=== PATIENT | female | born 1990 | race African-American/Black ===

== ENCOUNTER 2016-11-16 13:23 | Emergency (ER) | payer OTHER ==
[2016-11-16 13:54] VITALS: BP 118/70; PULSE 62; TEMP 98.2; BMI 17.8
--- NOTE | 2016-11-16 14:15 | PDOC ---
History of Present Illness - General Chief Complaint: Pain Stated Complaint: HEAD AND NECK INJURY Time Seen by Provider: 11/16/16 13:58 History Source: Patient Exam Limitations: No Limitations - History of Present Illness Initial Comments: 11/16/16 14:09 [employer] employee had snow fall on self from roof today while at work Occurred: reports: just prior to arrival Severity: reports: mild Pain Location: reports: back, head, neck Method of Injury: Yes: direct blow (snow from roof) Loss of Consciousness: no loss of consciousness Associated Symptoms (Fall): denies symptoms (excep), headache Past History - Past Medical History Allergies/Adverse Reactions: Allergies Allergy/AdvReac Type Severity Reaction Status Date / Time No Known Allergies Allergy Verified 05/17/16 13:32 Home Medications: Ambulatory Orders Famotidine [Pepcid] 20 mg PO DAILY #21 tablet 05/17/16 Ondansetron [Zofran Odt -] 4 mg SL TID #21 od.tablet 05/17/16 Anemia: No Asthma: No Cancer: No Cardiac Disorders: No CVA: No Disorders: (vaginal discharge) Kidney Stones: No Other medical history: denies - Surgical History Abdominal Surgery: No - Immunization History Td Vaccination: Yes TDAP Vaccination: Yes Immunization Up to Date: Yes - Psycho/Social/Smoking Cessation Hx Anxiety: No Suicidal Ideation: No Smoking Status: No Smoking History: Never smoked Years of Tobacco Use: 0 Have you smoked in the past 12 months: No Number of Cigarettes Smoked Daily: 0 Cigars Per Day: 0 Hx Alcohol Use: No Drug/Substance Use Hx: No Substance Use Type: Marijuana Review of Systems - Review of Systems Constitutional: No: Chills, Fever, Malaise HEENTM: No: Blurred Vision, Recent change in vision, Double Vision, Difficulty Swallowing Respiratory: No: Symptoms reported, Cough Cardiac (ROS): No: Symptoms Reported Musculoskeletal: Yes: Neck Pain (right lateral) Integumentary: No: Symptoms Reported, Bruising, Erythema Neurological: Yes: Symptoms reported, Headache (slight). No: Numbness, Paresthesia, Tingling, Tremors, Weakness, Ataxia, Dizziness *Physical Exam - Vital Signs Last Vital Signs Temp Pulse Resp BP Pulse Ox 98.2 F 62 18 118/70 100 11/16/16 13:37 11/16/16 13:37 11/16/16 13:37 11/16/16 13:37 11/16/16 13:37 - Physical Exam General Appearance: Yes: Appropriately Dressed, Apparent Distress, Other (mild tenderness to left occiput area, no STS) Neck: positive: Tender (tender to right lateral neck), Supple, Tender lateral. negative: Rigid, Rigidity, Tender midline Respiratory/Chest: positive: Chest Tender (tender to right upper back, medial to upper scapula), Lungs Clear Medical Decision Making - Medical Decision Making 11/16/16 14:15 no imaging needed now; pt will take motrin at home and instructed to return to ED for any new symptoms *DC/Admit/Observation/Transfer Diagnosis at time of Disposition: Strain of neck muscle Qualifiers: Encounter type: initial encounter Qualified Code(s): S16.1XXA - Strain of muscle, fascia and tendon at neck level, initial encounter Contusion of head Qualifiers: Encounter type: initial encounter Contusion of head detail: scalp Qualified Code(s): S00.03XA - Contusion of scalp, initial encounter - Discharge Dispostion Disposition: HOME Condition at time of disposition: Stable Admit: No - Patient Instructions Additional Instructions: return to ED for any new symptoms; motrin 400mg 3 times daily;
== END 2016-11-16 14:24 | disposition home or self-care (01) ==
LOC: JERFT 13:23
DX: S16.1XXA Strain of muscle, fascia and tendon at neck level, initial encounter (principal); S00.03XA Contusion of scalp, initial encounter; W20.8XXA Other cause of strike by thrown, projected or falling object, initial encounter; Y93.29 Activity, other involving ice and snow; Y92.59 Other trade areas as the place of occurrence of the external cause; Y99.0 Civilian activity done for income or pay
CPT/HCPCS: 99281-25

== ENCOUNTER 2017-11-24 03:32 | Emergency (ER) | payer OTHER ==
[2017-11-24] MEDS ORDERED: ONDANSETRON *ODT* 4 MG TABLET SL ONE (03:49)
--- NOTE | 2017-11-24 03:49 | PDOC ---
History of Present Illness - General Chief Complaint: Nausea/Vomiting Stated Complaint: VOMITING Time Seen by Provider: 11/24/17 03:49 History Source: Patient - History of Present Illness Initial Comments: 11/24/17 05:06 26 year old female with nausea, vomiting and RLQ pain x 6 days. denies fever/ chills, vaginal pain, discharge. LMP: 11/23/2017 11/24/17 06:50 Past History - Past Medical History Allergies/Adverse Reactions: Allergies Allergy/AdvReac Type Severity Reaction Status Date / Time No Known Allergies Allergy Verified 11/24/17 03:48 Home Medications: Ambulatory Orders NK [No Known Home Medication] 11/24/17 Anemia: No Asthma: No Cancer: No Cardiac Disorders: No CVA: No COPD: No Disorders: (vaginal discharge) Kidney Stones: No - Surgical History Abdominal Surgery: No - Immunization History Td Vaccination: Yes TDAP Vaccination: Yes Immunization Up to Date: Yes - Suicide/Smoking/Psychosocial Hx Smoking Status: No Smoking History: Never smoked Years of Tobacco Use: 0 Have you smoked in the past 12 months: No Number of Cigarettes Smoked Daily: 0 Cigars Per Day: 0 Hx Alcohol Use: No Drug/Substance Use Hx: No Substance Use Type: Marijuana Review of Systems - Review of Systems Able to Perform ROS?: Yes Is the patient limited Yi proficient: No Constitutional: No: Symptoms Reported, See HPI, Chills, Diaphoresis, Fever, Loss of Appetite, Malaise, Night Sweats, Weakness, Weight Stable, Unintentional Wgt. Loss, Unexplained wgt Loss, Other ABD/GI: Yes: Nausea, Vomiting, Abdominal cramping (RLQ) : No: Symptoms Reported, See HPI, Burning, Dysuria, Discharge, Frequency, Flank Pain, Hematuria, Incontinence, Pain, Urgency, Testicular Mass, Testicular Swelling, Lesions, Testicular Pain, Other *Physical Exam - Vital Signs 11/24/17 05:07 Last Vital Signs Temp Pulse Resp BP Pulse Ox 99.3 F 83 20 104/71 96 11/24/17 03:48 11/24/17 03:48 11/24/17 03:48 11/24/17 03:48 11/24/17 03:48 ED Treatment Course - LABORATORY CBC & Chemistry Diagram: 11/24/17 04:26 11/24/17 04:26 - RADIOLOGY Radiograph Interpretation: 11/24/17 06:50 CTAP: there is small amount of pelvic fluid. there is prominent vessels in the right adnexa suggesting right ovarian varices. normal appendix *DC/Admit/Observation/Transfer Diagnosis at time of Disposition: Right-sided abdominal pain of unknown cause - Referrals - Patient Instructions - Post Discharge Activity
[2017-11-24 03:50] VITALS: BMI 18.5
[2017-11-24] MEDS ORDERED: ONDANSETRON 4 MG/2 ML VIAL IVPUSH ONE (04:06)
[2017-11-24] MEDS ORDERED: SODIUM CHLORIDE 1,000 ML IV STA (04:06)
[2017-11-24] MEDS ORDERED: ONDANSETRON 4 MG/2 ML VIAL ONE (04:06)
[2017-11-24 04:34] LABS: BASO % 0.3 % (0-2.0); HEMATOCRIT 37.5 % (32.4-45.2); HEMOGLOBIN 12.9 GM/dL (10.7-15.3); LYMPH % 7.3 % (8-40); MCH 30.7 pg (25.7-33.7); MCHC 34.3 g/dl (32.0-36.0); MEAN CELL VOLUME 89.6 fl (80-96); MONO % 4.9 % (3.8-10.2); NEUT % 87.5 % (42.8-82.8); PLATELET COUNT 212 K/MM3 (134-434); RBC 4.19 M/mm3 (3.60-5.2); WHITE BLOOD COUNT 7.1 K/mm3 (4.0-10.0)
[2017-11-24 04:58] LABS: ALBUMIN 4.4 g/dl (3.4-5.0); ALK PHOS 55 U/L (45-117); ANION GAP 10 (8-16); BILIRUBIN,TOTAL 0.6 mg/dL (0.2-1.0); BLOOD UREA NITROGEN 12 mg/dL (7-18); CALCIUM 9.2 mg/dL (8.5-10.1); CHLORIDE 104 mmol/L (98-107); CO2 25 mmol/L (21-32); CREATININE 0.7 mg/dL (0.55-1.02); GLUCOSE,RANDOM 110 mg/dL (74-106); POTASSIUM 3.6 mmol/L (3.5-5.1); SGOT/AST 15 U/L (15-37); SGPT/ALT 22 U/L (12-78); SODIUM 139 mmol/L (136-145); TOT PROT 7.8 g/dl (6.4-8.2)
--- NOTE | 2017-11-24 07:30 | PDOC ---
*Physical Exam - Vital Signs Last Vital Signs Temp Pulse Resp BP Pulse Ox 99.3 F 83 20 104/71 96 11/24/17 03:48 11/24/17 03:48 11/24/17 03:48 11/24/17 03:48 11/24/17 03:48 - Physical Exam General Appearance: Yes: Appropriately Dressed. No: Apparent Distress HEENT: positive: Normal Voice Neck: positive: Supple Respiratory/Chest: negative: Respiratory Distress Gastrointestinal/Abdominal: positive: Soft. negative: Tender Musculoskeletal: negative: CVA Tenderness Integumentary: positive: Dry, Warm Neurologic: positive: Fully Oriented, Alert, Normal Mood/Affect ED Treatment Course - LABORATORY CBC & Chemistry Diagram: 11/24/17 04:26 11/24/17 04:26 - ADDITIONAL ORDERS Additional order review: Laboratory Results 11/24/17 11/24/17 11/24/17 04:27 04:26 04:26 Sodium 139 Potassium 3.6 Chloride 104 Carbon Dioxide 25 Anion Gap 10 BUN 12 Creatinine 0.7 Creat Clearance w eGFR > 60 Random Glucose 110 H Calcium 9.2 Total Bilirubin 0.6 D AST 15 ALT 22 Alkaline Phosphatase 55 Total Protein 7.8 Albumin 4.4 Serum , Qual Negative Blood Type A POSITIVE Antibody Screen Negative 11/24/17 04:26 RBC 4.19 MCV 89.6 MCHC 34.3 RDW 13.0 MPV 9.0 Neutrophils % 87.5 H Lymphocytes % 7.3 L D Monocytes % 4.9 Eosinophils % 0.0 D Basophils % 0.3 - Medications Given in the ED: ED Medications Discontinued Medications Generic Name Dose Route Start Last Admin Trade Name Freq PRN Reason Stop Dose Admin Sodium Chloride 1,000 mls @ 1,000 mls/hr 11/24/17 04:06 11/24/17 04:19 Normal Saline - IV 11/24/17 05:05 1,000 mls/hr ASDIR STA Administration Ondansetron HCl 4 mg 11/24/17 03:49 11/24/17 04:32 Zofran Odt - SL 11/24/17 03:50 Not Given ONCE ONE Ondansetron HCl 4 mg 11/24/17 04:06 11/24/17 04:19 Zofran Injection IVPUSH 11/24/17 04:07 4 mg ONCE ONE Administration Medical Decision Making - Medical Decision Making 11/24/17 07:28 Patient signed out to me at 7 AM by garrett Howard. Patient is a 26-year-old female, h/o ovarian cyst, currently on her menses, here with pelvic pain. Patient reports right-sided lower abdominal pain that is chronic in nature and mostly associated with her menses, but states recently she has also had some dyspareunia and n/v intermittently. No vaginal discharge, dysuria, fever or chills. For unclear reasons, has not been evaluated by her CT TECHNOLOGIST. No new sexual partners and no history of STDs. As per prior provider, pt was tender to RLQ on initial exam w/ normal pelvic. Labs unremarkable. Patient had CT done which only showed possible right ovarian varices which could represent pelvic congestion syndrome. Ultrasound pending. Pain currently controlled 11/24/17 07:31 11/24/17 09:00 Ultrasound read as minimal free fluid in the left adnexa that could possibly be due to recent rupture of cyst or follicle. Right and left ovary with small cysts/follicles with normal arterial and venous flow. Patient pain-free at this time. Will dc with CT TECHNOLOGIST follow-up this week *DC/Admit/Observation/Transfer Diagnosis at time of Disposition: Ovarian cyst Qualifiers: Laterality: bilateral Qualified Code(s): N83.201 - Unspecified ovarian cyst, right side; N83.202 - Unspecified ovarian cyst, left side; N83.202 - Unspecified ovarian cyst, left side - Discharge Dispostion Disposition: HOME Condition at time of disposition: Improved - Referrals - Patient Instructions Printed Discharge Instructions: Ovarian Cyst Additional Instructions: Your CAT scan show that you may possibly have right ovarian varices which can cause chronic pelvic pain. Your ultrasound showed bilateral ovarian cysts with possible recent rupture of one of your cysts. There is however good blood flow on both sides Take 600-800 mg of Motrin as needed for pain and please follow-up with your CT TECHNOLOGIST this week. If symptoms worsen, return to ER - Post Discharge Activity
[2017-11-24 07:39] LABS: URINE APPEARANCE CLOUDY; URINE BILIRUBIN NEGATIVE (NEGATIVE); URINE BLOOD 3+ (NEGATIVE); URINE COLOR RED; URINE GLUCOSE (UA) NEGATIVE (NEGATIVE); URINE KETONE 2+ (NEGATIVE); URINE LEUK ESTERASE TRACE (NEGATIVE); URINE NITRITE NEGATIVE (NEGATIVE); URINE UROBILINOGEN 4.0 E.U/dl mg/dL (0.2-1.0)
[2017-11-24 07:42] LABS: URINE PROTEIN 2+ (NEGATIVE)
[2017-11-24 07:48] LABS: URINE MUCUS RARE
[2017-11-24 09:17] VITALS: BP 108/77; PULSE 88; TEMP 98
== END 2017-11-24 09:17 | disposition home or self-care (01) ==
LOC: JER 03:32
PROC: 3E033GC Introduction of Other Therapeutic Substance into Peripheral Vein, Percutaneous Approach (ICD-10-PCS; principal; 2017-11-24)
DX: N83.201 Unspecified ovarian cyst, right side (principal); N83.202 Unspecified ovarian cyst, left side
CPT/HCPCS: 36415; 74177-TC; 76830-TC; 80053; 81003; 81015; 84703; 85025; 86850; 86900; 86901; 99283-25

== ENCOUNTER 2019-10-19 08:27 | Emergency (ER) | payer SELFPAY ==
[2019-10-19 08:39] VITALS: BP 115/64; PULSE 112; TEMP 101.1; BMI 20.5
[2019-10-19] MEDS ORDERED: ACETAMINOPHEN 325 MG TABLET (FP) PO ONE (09:08)
[2019-10-19] MEDS ORDERED: ACETAMINOPHEN 325 MG TABLET (FP) ONE (09:11)
--- NOTE | 2019-10-19 10:01 | PDOC ---
History of Present Illness - General Chief Complaint: Cold Symptoms Stated Complaint: FLU LIKE SYMPTOMS Time Seen by Provider: 10/19/19 08:59 History Source: Patient - History of Present Illness Timing/Duration: reports: yesterday Past History - Past Medical History Allergies/Adverse Reactions: Allergies Allergy/AdvReac Type Severity Reaction Status Date / Time No Known Allergies Allergy Verified 11/24/17 03:48 Home Medications: Ambulatory Orders NK [No Known Home Medication] 11/24/17 Anemia: No Asthma: No Cancer: No Cardiac Disorders: No CVA: No COPD: No Disorders: (vaginal discharge) Kidney Stones: No - Surgical History Abdominal Surgery: No - Immunization History Td Vaccination: Yes TDAP Vaccination: Yes Immunization Up to Date: Yes - Psycho Social/Smoking Cessation Hx Smoking Status: No Smoking History: Never smoked Years of Tobacco Use: 0 Have you smoked in the past 12 months: No Number of Cigarettes Smoked Daily: 0 Cigars Per Day: 0 Hx Alcohol Use: No Drug/Substance Use Hx: No Substance Use Type: Marijuana Review of Systems - Review of Systems Constitutional: Yes: Fever, Malaise HEENTM: No: Ear Pain, Throat Pain Respiratory: Yes: Cough. No: Shortness of Breath Cardiac (ROS): No: Chest Pain ABD/GI: No: Diarrhea, Vomiting *Physical Exam - Vital Signs Last Vital Signs Temp Pulse Resp BP Pulse Ox 101.1 F H 112 H 17 115/64 99 10/19/19 08:36 10/19/19 08:36 10/19/19 08:36 10/19/19 08:36 10/19/19 08:36 - Physical Exam 10/19/19 10:04 july mildly lethargic General Appearance: Yes: Appropriately Dressed HEENT: positive: Normal ENT Inspection, Normal Voice, TMs Normal, Pharynx Normal. negative: Scleral Icterus (R), Scleral Icterus (L) Neck: positive: Supple Respiratory/Chest: positive: Lungs Clear, Normal Breath Sounds. negative: Respiratory Distress Cardiovascular: positive: Regular Rate, S1, S2 Integumentary: positive: Dry, Warm Neurologic: positive: Fully Oriented, Alert, Normal Mood/Affect ED Treatment Course - Medications Given in the ED: ED Medications Discontinued Medications Generic Name Dose Route Start Last Admin Trade Name Freq PRN Reason Stop Dose Admin Acetaminophen 650 mg 10/19/19 09:08 10/19/19 09:13 Tylenol - PO 10/19/19 09:09 650 mg ONCE ONE Administration Medical Decision Making - Medical Decision Making 10/19/19 09:59 28-year-old female, no significant history, here with body aches, cough, fever and chills for 2 days. No shortness of breath nausea vomiting diarrhea. see exam Viral syndrome Exam remarkable for low grade fever Flu neg Dc w/ supportive tx Discharge - Discharge Information Problems reviewed: Yes Clinical Impression/Diagnosis: Viral illness Condition: Good Disposition: HOME - Follow up/Referral - Patient Discharge Instructions Additional Instructions: Your symptoms are most likely due to a viral source Rest drink plenty fluids and take Motrin or Tylenol as needed for pain and/or fever - Post Discharge Activity Work/Back to School Note: Back to Work
== END 2019-10-19 10:08 | disposition home or self-care (01) ==
LOC: JERFT 08:27
DX: B34.9 Viral infection, unspecified (principal)
CPT/HCPCS: 87804; 99281-25

== ENCOUNTER 2024-04-22 10:20 | Emergency (ER) | payer OTHER ==
[2024-04-22 10:29] VITALS: BP 106/71; PULSE 80; RESP 18; TEMP 98.1; BMI 20.5
[2024-04-22 12:25] LABS: PH,URINE 7.5 (5.0-8.0); URINE APPEARANCE CLEAR; URINE BILIRUBIN NEGATIVE (NEGATIVE); URINE COLOR YELLOW; URINE GLUCOSE (UA) NEGATIVE (NEGATIVE); URINE KETONE NEGATIVE (NEGATIVE); URINE LEUK ESTERASE NEGATIVE (NEGATIVE); URINE NITRITE NEGATIVE (NEGATIVE); URINE PROTEIN NEGATIVE (NEGATIVE)
[2024-04-22 12:28] LABS: HCG,QUALITATIVE URINE Negative
[2024-04-22] MEDS ORDERED: ONDANSETRON 4 MG/2 ML VIAL ONE (13:44)
[2024-04-22 13:45] LABS: BASO % 0.5 % (0-2.0); EOS % 1.4 % (0-4.5); HEMATOCRIT 36.6 % (32.4-45.2); HEMOGLOBIN 12.5 GM/dL (10.7-15.3); LYMPH % 21.6 % (8-40); MCH 30.6 pg (25.7-33.7); MCHC 34.1 g/dl (32.0-36.0); MEAN CELL VOLUME 89.6 fl (80-96); MEAN PLT VOLUME 7.7 fl (7.5-11.1); MONO % 6.2 % (3.8-10.2); NEUT % 70.3 % (42.8-82.8); PLATELET COUNT 217 10^3/uL (134-434); RBC 4.09 M/mm3 (3.60-5.2); RDW 13.6 % (11.6-15.6); WHITE BLOOD COUNT 6.8 K/mm3 (4.0-10.0)
[2024-04-22 13:52] LABS: CALCIUM 9.3 mg/dL (8.5-10.1); POTASSIUM 4.7 mmol/L (3.5-5.1)
[2024-04-22] MEDS: SODIUM CHLORIDE 1,000 ML IV STA (13:52)
[2024-04-22] MEDS: ONDANSETRON 4 MG/2 ML VIAL IVPUSH ONE (13:52)
[2024-04-22 13:53] LABS: ALBUMIN 4.2 g/dl (3.4-5.0)
[2024-04-22 13:56] LABS: CREATININE 0.6 mg/dL (0.55-1.3)
[2024-04-22 13:58] LABS: BILIRUBIN,TOTAL 0.4 mg/dL (0.2-1); TOT PROT 7.6 g/dl (6.4-8.2)
== END 2024-04-22 17:22 | disposition home or self-care (01) ==
LOC: JER 10:20
DX: J02.9 Acute pharyngitis, unspecified (principal); R22.1 Localized swelling, mass and lump, neck; R53.81 Other malaise
CPT/HCPCS: 36415; 70491-TC; 80053; 81003; 84703; 85025; 86308; 87651; 99285-25; Q9967

== ENCOUNTER 2025-01-15 10:42 | Emergency (ER) | payer OTHER ==
[2025-01-15 10:57] VITALS: TEMP 98.2; BMI 27.4
[2025-01-15] MEDS ORDERED: ONDANSETRON 4 MG/2 ML VIAL ONE (11:38)
[2025-01-15] MEDS ORDERED: ACETAMINOPHEN INJECTION 100 ML ONE (11:38)
[2025-01-15] MEDS ORDERED: FAMOTIDINE 20 MG/50 ML IVPB 20 MG/50 ML MG IVPB ONE (11:39)
[2025-01-15] MEDS: ONDANSETRON 4 MG/2 ML VIAL IVPUSH ONE (12:16)
[2025-01-15] MEDS: SODIUM CHLORIDE 0.9% 500 ML INFUS.BAG IV ONE ×2 (12:16→14:34)
[2025-01-15] MEDS: ACETAMINOPHEN 1000 MG/100 ML BAG IVPB ONE (12:16)
[2025-01-15] MEDS: FAMOTIDINE 20 MG/50 ML IVPB 20 MG/50 ML MG IVPB ONE (12:16)
[2025-01-15 12:33] LABS: HEMOGLOBIN 12.9 g/dL (11.2-15.7); MCHC 33.9 g/dl (32.2-35.5); MEAN PLT VOLUME 10.2 fl (9.4-12.3); PLATELET COUNT 282 x10^3/uL (182-369); RDW 12.6 % (12.1-16.8)
[2025-01-15 12:53] LABS: POTASSIUM 3.9 mmol/L (3.5-5.1)
[2025-01-15 12:56] LABS: ALBUMIN 4.5 g/dl (3.4-5.0); BLOOD UREA NITROGEN 10.3 mg/dL (7-18); CALCIUM 9.6 mg/dL (8.5-10.1)
[2025-01-15 12:59] LABS: CREATININE 0.8 mg/dL (0.55-1.3)
[2025-01-15 13:01] LABS: BILIRUBIN,TOTAL 0.5 mg/dL (0.2-1); TOT PROT 8.1 g/dl (6.4-8.2)
[2025-01-15 13:04] LABS: EPI CELLS 25 /uL (0-25.1); HYALINE CASTS 1 /uL (0-3.1); URINE APPEARANCE CLOUDY; URINE BACTERIA 407 /uL (0-1359); URINE BILIRUBIN NEGATIVE (NEGATIVE); URINE COLOR YELLOW; URINE GLUCOSE (UA) NEGATIVE (NEGATIVE); URINE KETONE 1+ (NEGATIVE); URINE LEUK ESTERASE NEGATIVE (NEGATIVE); URINE NITRITE NEGATIVE (NEGATIVE); URINE PROTEIN TRACE (NEGATIVE); URINE UROBILINOGEN 0.2 mg/dL (0.2-1.0); URINE WBC 42 /uL (0-25.8)
[2025-01-15 13:21] LABS: URINE RBC 197 /uL (0-23.9); YEAST NONE SEEN (NEGATIVE)
[2025-01-15 13:49] LABS: HIV INTERPRETATION NEGATIVE (NEGATIVE)
[2025-01-15 13:50] LABS: HCV DIAGNOSTIC IN-HOUSE W/RFLX NON-REACTIVE (NONREACTIVE)
[2025-01-15 15:32] VITALS: BP 102/63; PULSE 61; RESP 17
== END 2025-01-15 16:00 | disposition home or self-care (01) ==
LOC: JER 10:42
PROC: 3E033GC Introduction of Other Therapeutic Substance into Peripheral Vein, Percutaneous Approach (ICD-10-PCS; principal; 2025-01-15)
PROC: 3E033NZ Introduction of Analgesics, Hypnotics, Sedatives into Peripheral Vein, Percutaneous Approach (ICD-10-PCS; 2025-01-15)
PROC: 3E033GC Introduction of Other Therapeutic Substance into Peripheral Vein, Percutaneous Approach (ICD-10-PCS; 2025-01-15)
DX: N94.6 Dysmenorrhea, unspecified (principal); R11.2 Nausea with vomiting, unspecified; R10.31 Right lower quadrant pain; R10.32 Left lower quadrant pain
CPT/HCPCS: 36415; 74177-TC; 80053; 81003; 83690; 84703; 85025; 86803; 87086; 87389; 99285-25; J0131; Q9967